=== PATIENT | male | born 1995 | race American Indian/Alaskan Native ===

== ENCOUNTER 2018-12-12 22:16 | Emergency (ER) | payer SELFPAY ==
--- NOTE | 2018-12-13 00:45 | Emergency Department Report ---
ED Male HPI - General Chief complaint: Urogenital-Male Stated complaint: POSSIBLE STD Time Seen by Provider: 12/12/18 23:30 Source: patient Mode of arrival: Ambulatory Limitations: No Limitations - History of Present Illness Initial comments: This is a 23-year-old male nontoxic, well nourished in appearance, no acute signs of distress presents to the ED with c/o of penile discharge and dysuria. Patient agrees to having sexual intercourse without protection. Patient denies any testicular pain or swelling. Patient denies any penile ulcers or lesions. Patient denies any nausea, vomiting, chest pain, shortness of breathe, fever, chills, headache, back pain, numbness, tingling, stiff neck. Patient denies any urinary symptoms. Patient denies any allergies or PMH. MD Complaint: penile discharge, dysuria -: days(s) (3) Location: penis Radiation: none Severity: mild Severity scale (0 -10): 3 Quality: burning Consistency: intermittent Improves with: none Worsens with: urination discharge, dysuria. denies: swelling, mass, rash, urinary retention, blood in urine, fever, nausea/vomiting, incontinence - Related Data Sexually active: Yes Previous Rx's Medication Instructions Recorded Last Taken Type Sulfamethoxazole/Trimethoprim 1 each PO BID #20 tablet 12/13/18 Unknown Rx [Bactrim DS TAB] ED Review of Systems ROS: Stated complaint: POSSIBLE STD Other details as noted in HPI Constitutional: denies: chills, fever Eyes: denies: eye pain, eye discharge, vision change ENT: denies: ear pain, throat pain Respiratory: denies: cough, shortness of breath, wheezing Cardiovascular: denies: chest pain, palpitations Endocrine: no symptoms reported Gastrointestinal: denies: abdominal pain, nausea, diarrhea Genitourinary: dysuria, discharge. denies: urgency, frequency, hematuria Musculoskeletal: denies: back pain, joint swelling, arthralgia Skin: denies: rash, lesions Neurological: denies: headache, weakness, paresthesias Psychiatric: denies: anxiety, depression Hematological/Lymphatic: denies: easy bleeding, easy bruising ED Past Medical Hx - Past Medical History Previous Medical History?: No Hx Hypertension: No Hx CVA: No Hx Heart Attack/AMI: No Hx Congestive Heart Failure: No Hx Diabetes: No Hx Deep Vein Thrombosis: No Hx Pulmonary Embolism: No Hx GERD: No Hx Liver Disease: No Hx Renal Disease: No Hx of Cancer: No Hx Sickle Cell Disease: No Hx Arthritis: No Hx Headaches / Migraines: No Hx Seizures: No Hx Kidney Stones: No Hx Psychiatric Treatment: No Hx Asthma: No Hx COPD: No Hx Tuberculosis: No Hx Dementia: No Hx HIV: No - Surgical History Past Surgical History?: No Hx Coronary Stent: No Hx Open Heart Surgery: No Hx Pacemaker: No Hx Internal Defibrillator: No Hx Cholecystectomy: No Hx Appendectomy: No Hx Breast Surgery: No - Social History Smoking Status: Former Smoker Substance Use Type: Marijuana - Medications Home Medications: Home Medications Medication Instructions Recorded Confirmed Last Taken Type Sulfamethoxazole/Trimethoprim 1 each PO BID #20 tablet 12/13/18 Unknown Rx [Bactrim DS TAB] ED Physical Exam - General Limitations: No Limitations General appearance: alert, in no apparent distress - Head Head exam: Present: atraumatic, normocephalic - Neck Neck exam: Present: normal inspection, full ROM - Extremities Exam Extremities exam: Present: normal inspection, full ROM - Back Exam Back exam: Present: normal inspection, full ROM. Absent: tenderness, CVA tenderness (R), CVA tenderness (L), muscle spasm, paraspinal tenderness, vertebral tenderness, rash noted - Neurological Exam Neurological exam: Present: alert, oriented X3 - Psychiatric Psychiatric exam: Present: normal affect, normal mood - Skin Skin exam: Present: warm, dry, intact, normal color. Absent: rash ED Course Vital Signs 12/12/18 12/12/18 22:21 22:23 Temperature 98.4 F 98.4 F Pulse Rate 103 H 102 H Respiratory 18 18 Rate Blood Pressure 140/83 140/83 Blood Pressure 140/83 [Right] O2 Sat by Pulse 98 97 Oximetry - Reevaluation(s) Reevaluation #1: 12/13/18 00:44 Patient is speaking in full sentences with no signs of distress noted. ED Medical Decision Making - Medical Decision Making This is a 23-year-old male that presents with dysuria and UTI. Patient is stable was examined by me. There is no abdominal tenderness. No pelvic pain. UA obtained. Urine culture pending. Gonorrhea chlamydia pending. Patient was instructed to return in 3-5 days for GC results. Patient wanted empirical treatment so patient received 250 mg Rocephin and 1 g of azithromycin by mouth. Patient was instructed to Follow-up with a primary care doctor in 3-5 days or if symptoms worsen and continue return to emergency room as soon as possible. At time of discharge, the patient does not seem toxic or ill in appearance. No acute signs of distress noted. Patient agrees to discharge treatment plan of care. No further questions noted by the patient. Critical care attestation.: If time is entered above; I have spent that time in minutes in the direct care of this critically ill patient, excluding procedure time. ED Disposition Clinical Impression: Possible exposure to STD UTI (urinary tract infection) Qualifiers: Urinary tract infection type: acute cystitis Hematuria presence: without hematuria Qualified Code(s): N30.00 - Acute cystitis without hematuria Disposition: TO HOME OR SELFCARE Is pt being admited?: No Does the pt Need Aspirin: No Condition: Stable Instructions: Safe Sex (ED), Urinary Tract Infection in Men (ED) Additional Instructions: Follow-up with a primary care doctor in 3-5 days or if symptoms worsen and continue return to emergency room as soon as possible. Return in 3-5 days for gonorrhea and chlamydia results. Prescriptions: Sulfamethoxazole/Trimethoprim [Bactrim DS TAB] 1 each PO BID #20 tablet Referrals: PRIMARY CAREMD [Primary Care Provider] - 3-5 Days MARTÍNEZ DAVIS MD [Staff Physician] - 3-5 Days [facility] [Outside] - 3-5 Days [facility] [Outside] - 3-5 Days Forms: Work/School Release Form(ED)
[2018-12-13 01:04] LABS: Bacteria,Urine 1+ /HPF (Negative); Bilirubin,Urine NEG (Negative); Blood,Urine MOD (Negative); Calcium Oxalate Crystals,Urine FEW; Color,Urine Yellow (Yellow); Hyaline Casts,Urine 19 /LPF; Mucus,Urine 2+ /HPF; Protein,Urine <15 mg/dL mg/dL (Negative)
[2018-12-13 01:05] LABS: WBC,Urine > 182.0 /HPF (0.0-6.0)
[2018-12-13] MEDS ORDERED: ZITHROMAX PO ONE (01:07)
[2018-12-13] MEDS ORDERED: XYLOCAINE 1% MPF 5 mL INFILTRATI ONE (01:07)
[2018-12-13] MEDS ORDERED: ROCEPHIN IM ONE (01:07)
[2018-12-13 01:42] VITALS: BP 135/82
== END 2018-12-13 01:41 | disposition home or self-care (01) ==
LOC: ED 22:16
DX: N39.0 Urinary tract infection, site not specified (principal); Z87.891 Personal history of nicotine dependence
CPT/HCPCS: 81001; 87086; 87591; 96372; 99283; J0696

== ENCOUNTER 2019-03-01 04:54 | Emergency (ER) | payer OTHER ==
[2019-03-01] MEDS ORDERED: IBUPROFEN PO ONE (05:05)
[2019-03-01] MEDS ORDERED: IBUPROFEN ONE (05:06)
[2019-03-01] MEDS ORDERED: TYLENOL PO ONE (09:30)
[2019-03-01] MEDS ORDERED: ZOFRAN ODT PO ONE (09:30)
--- NOTE | 2019-03-01 09:35 | Emergency Department Report ---
ED Fever HPI - General Chief Complaint: Upper Respiratory Infection Stated Complaint: FEVER/VOMITING/BODYACHES Time Seen by Provider: 03/01/19 09:25 Source: patient, mental health case manager Exam Limitations: no limitations - History of Present Illness Initial Comments: 3 days fever, cough runny nose nausea vomiting, productive cough Timing/Duration: other (3 days Sunday) Fever Severity/Quality: greater than 100.5 F Fever Therapy [employer] CL[employer]: Ibuprofen Associated Symptoms: cough, nausea/vomiting ED Review of Systems ROS: Stated complaint: FEVER/VOMITING/BODYACHES Other details as noted in HPI Constitutional: chills, fever, malaise ENT: denies: throat pain Respiratory: cough. denies: shortness of breath, wheezing Cardiovascular: denies: chest pain Gastrointestinal: nausea, vomiting. denies: abdominal pain Neurological: denies: headache ED Past Medical Hx - Past Medical History Previous Medical History?: No Hx Hypertension: No Hx CVA: No Hx Heart Attack/AMI: No Hx Congestive Heart Failure: No Hx Diabetes: No Hx Deep Vein Thrombosis: No Hx Pulmonary Embolism: No Hx GERD: No Hx Liver Disease: No Hx Renal Disease: No Hx Sickle Cell Disease: No Hx Arthritis: No Hx Headaches / Migraines: No Hx Seizures: No Hx Kidney Stones: No Hx Psychiatric Treatment: No Hx Asthma: No Hx COPD: No Hx Tuberculosis: No Hx Dementia: No Hx HIV: No - Surgical History Past Surgical History?: No Hx Coronary Stent: No Hx Open Heart Surgery: No Hx Pacemaker: No Hx Internal Defibrillator: No Hx Cholecystectomy: No Hx Appendectomy: No Hx Breast Surgery: No - Social History Smoking Status: Never Smoker Substance Use Type: Alcohol, Marijuana - Medications Home Medications: Home Medications Medication Instructions Recorded Confirmed Last Taken Type Sulfamethoxazole/Trimethoprim 1 each PO BID #20 tablet 12/13/18 Unknown Rx [Bactrim DS TAB] Azithromycin [Zithromax Z-QUIN] 250 mg PO DAILY #6 tablet 03/01/19 Unknown Rx Oseltamivir [Tamiflu] 75 mg PO BID 5 Days #10 cap 03/01/19 Unknown Rx Promethazine [Phenergan TAB] 25 mg PO Q6HR PRN #10 tab 03/01/19 Unknown Rx ED Physical Exam - General Limitations: No Limitations General appearance: alert, in no apparent distress - Head Head exam: Present: atraumatic, normocephalic - Eye Eye exam: Present: normal appearance - ENT ENT exam: Present: mucous membranes moist - Neck Neck exam: Present: normal inspection, full ROM - Respiratory Respiratory exam: Present: normal lung sounds bilaterally. Absent: respiratory distress, wheezes, rales, rhonchi - Cardiovascular Cardiovascular Exam: Present: regular rate, normal rhythm, normal heart sounds. Absent: systolic murmur, diastolic murmur, rubs, gallop - GI/Abdominal GI/Abdominal exam: Present: soft, normal bowel sounds. Absent: distended, tenderness, guarding, rebound - Rectal Rectal exam: Present: deferred - Extremities Exam Extremities exam: Present: normal inspection - Back Exam Back exam: Present: normal inspection - Neurological Exam Neurological exam: Present: alert, oriented X3 - Psychiatric Psychiatric exam: Present: normal affect, normal mood - Skin Skin exam: Present: warm, dry, intact, normal color. Absent: rash ED Course Vital Signs 03/01/19 04:57 Temperature 101 F H Pulse Rate 120 H Respiratory 19 Rate Blood Pressure 166/96 O2 Sat by Pulse 99 Oximetry ED Medical Decision Making - Medical Decision Making Juan Antonio is a very pleasant 23 yo male with flu-like symptoms. 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 Rx: tamiflu, due to risk of nosocomial infection and bacterial bronchitis, also prescribed azithromycin promethazine prescribed for nausea Critical care attestation.: If time is entered above; I have spent that time in minutes in the direct care of this critically ill patient, excluding procedure time. ED Disposition Clinical Impression: Influenza, Acute bronchitis Disposition: [id number] TO HOME OR SELFCARE Is pt being admited?: No Does the pt Need Aspirin: No Condition: Stable Instructions: Acute Bronchitis (ED), Influenza (ED), Fever in Adults (ED) Prescriptions: Promethazine [Phenergan TAB] 25 mg PO Q6HR PRN #10 tab PRN Reason: Nausea Oseltamivir [Tamiflu] 75 mg PO BID 5 Days #10 cap Azithromycin [Zithromax Z-QUIN] 250 mg PO DAILY #6 tablet Referrals: BONG MENJIVAR MD [Primary Care Provider] - 3-5 Days Forms: Work/School Release Form(ED)
[2019-03-01 09:44] VITALS: BP 140/84
== END 2019-03-01 09:44 | disposition home or self-care (01) ==
LOC: ED 04:54
DX: J11.1 Influenza due to unidentified influenza virus with other respiratory manifestations (principal); J20.9 Acute bronchitis, unspecified; F12.10 Cannabis abuse, uncomplicated
CPT/HCPCS: 99282; Q0162

== ENCOUNTER 2022-03-26 23:15 | Emergency (ER) | payer SELFPAY ==
[2022-03-27 00:51] VITALS: BP 175/86
== END 2022-03-27 05:07 | disposition left against medical advice (07) ==
LOC: ED 23:15
DX: T23.402A Corrosion of unspecified degree of left hand, unspecified site, initial encounter (principal); Z53.21 Procedure and treatment not carried out due to patient leaving prior to being seen by health care provider; X08.8XXA Exposure to other specified smoke, fire and flames, initial encounter; Y93.89 Activity, other specified; Y92.89 Other specified places as the place of occurrence of the external cause; Y99.8 Other external cause status